=== PATIENT | female | born 1950 | race Caucasian/White ===

== ENCOUNTER 2019-06-07 11:58 | Outpatient (CLI) | payer MEDICARE ==
[2019-06-07] MEDS ORDERED: Iopamidol 370 76% 100 ML VIAL ONE (13:55)
[2019-06-07] MEDS ORDERED: Iopamidol 370 76% 50 ML VIAL FS ONE (13:55)
--- NOTE | 2019-06-07 15:34 | CT ---
CT ABDOMEN AND PELVIS WITH ORAL AND IV CONTRAST: HISTORY: Abdominal pain unspecified. Lower abdominal pain. COMPARISON: None. FINDINGS: The lung bases are unremarkable. The liver demonstrates decreased attenuation compared to the spleen , consistent with fatty infiltration. No hepatic mass or abnormal biliary ductal dilatation is seen. The patient is post cholecystectomy. The spleen, pancreas, adrenal glands, and kidneys are normal. No free air, free fluid, or lymphadenopathy is seen in the abdomen or pelvis. A uterus and ovaries a re present. The small bowel loops are not abnormally dilated. There is colonic diverticulosis. There is thicken ing of the wall of the proximal transverse colon with surrounding inflammatory changes. No abnormall y loculated fluid collection is seen to suggest abscess formation. There are vascular calcifications without evidence of aneurysmal dilatation. A normal-appearing appe ndix is present. There are degenerative changes in the spine. IMPRESSION: 1. Fatty infiltration of the liver. 2. Colonic diverticulosis with diverticulitis involving the proximal transverse colon. The possibil ity of mass cannot be excluded. A colonoscopy should be performed after a course of antibiotics. CODE T POS: TPC
== END 2019-06-07 11:59 | disposition home or self-care (01) ==
LOC: CT 11:58
PROVIDERS: ATTEND Internal Medicine
DX: R10.9 Unspecified abdominal pain (principal); K76.0 Fatty (change of) liver, not elsewhere classified; K57.30 Diverticulosis of large intestine without perforation or abscess without bleeding; K57.32 Diverticulitis of large intestine without perforation or abscess without bleeding
CPT/HCPCS: 74177; 81001; 87086; Q9967

== ENCOUNTER 2020-09-18 09:35 | Outpatient (CLI) | payer MEDICARE ==
--- NOTE | 2020-09-18 10:10 | BD ---
EXAM: DEXA bone density examination HISTORY: 69-year-old postmenopausal female for screening COMPARISON: None FINDINGS: L1--bone mineral density 0.870 g/sq cm; T score -1.1 L2--bone mineral density 0.880 g/sq cm; T score -1.3 L3--bone mineral density 0.920 g/sq cm; T score -1.5 L4--bone mineral density 0.999 g/sq cm; T score -0.6 Total L1-L4--bone mineral density 0.921 g/sq cm; T score -1.1 Left femoral neck--bone mineral density0.665; T score -1.7 Total proximal left femur--bone mineral density 0.999; T score 0.5 IMPRESSION: Osteopenia. This patient has a 10 year WHO fracture risk of a major osteoporotic fracture of 9.6% and of a hip fracture of 1.4%.
--- NOTE | 2020-09-18 11:55 | MMO ---
Bilateral MAMMO Bilat Screen [facility]. CLINICAL HISTORY: Patient is 69 years old and is seen for screening. The patient has no family history of breast cancer. The patient has no personal history of cancer. VIEWS: The views performed were: bilateral craniocaudal with tomosynthesis and bilateral mediolateral oblique with tomosynthesis. FILMS COMPARED: The present examination has been compared to prior imaging studies performed at [facility] on 01/17/2019, and at [facility] on 01/22/2012, 07/30/2012 and 03/24/2013. This study has been interpreted with the assistance of computer-aided detection. MAMMOGRAM FINDINGS: There are scattered fibroglandular densities. There are stable nodules seen in both breasts. There are no suspicious masses, suspicious calcifications, or new areas of architectural distortion. IMPRESSION: THERE IS NO MAMMOGRAPHIC EVIDENCE OF MALIGNANCY. A ROUTINE FOLLOW-UP MAMMOGRAM IN 1 YEAR IS RECOMMENDED. THE RESULTS OF THIS EXAM WERE SENT TO THE PATIENT. ACR BI-RADS Category 2 - Benign finding MAMMOGRAPHY NOTE: 1. A negative mammogram report should not delay a biopsy if a dominant of clinically suspicious mass is present. 2. Approximately 10% to 15% of breast cancers are not detected by mammography. 3. Adenosis and dense breasts may obscure an underlying neoplasm. Reported by: GENE BETANCOURT MD Electonically Signed: [id number]
== END 2020-09-18 09:36 | disposition home or self-care (01) ==
LOC: BICMAMMO 09:35
PROVIDERS: ATTEND Internal Medicine
DX: Z12.31 Encounter for screening mammogram for malignant neoplasm of breast (principal); Z13.820 Encounter for screening for osteoporosis; M85.89 Other specified disorders of bone density and structure, multiple sites; Z78.0 Asymptomatic menopausal state
CPT/HCPCS: 77063; 77067; 77080

== ENCOUNTER 2021-09-25 11:15 | Outpatient (CLI) | payer MEDICARE | END 2021-09-25 11:16 | disposition home or self-care (01) | LOC: BICMAMMO 11:15 | PROVIDERS: ATTEND Internal Medicine | DX: Z12.31 Encounter for screening mammogram for malignant neoplasm of breast (principal) | CPT/HCPCS: 77063; 77067 ==

== ENCOUNTER 2022-04-15 09:54 | Outpatient (CLI) | payer MEDICARE | END 2022-04-15 09:55 | disposition home or self-care (01) | LOC: BICULT 09:54 | PROVIDERS: ATTEND Internal Medicine Gastroenterology | DX: K76.0 Fatty (change of) liver, not elsewhere classified (principal); R79.89 Other specified abnormal findings of blood chemistry; E11.9 Type 2 diabetes mellitus without complications; R16.0 Hepatomegaly, not elsewhere classified; Z90.49 Acquired absence of other specified parts of digestive tract | CPT/HCPCS: 76705 ==

== ENCOUNTER 2022-10-22 14:23 | Outpatient (CLI) | payer OTHER | END 2022-10-22 14:24 | disposition home or self-care (01) | LOC: BICMAMMO 14:23 | PROVIDERS: ATTEND Internal Medicine | DX: Z12.39 Encounter for other screening for malignant neoplasm of breast (principal); R92.1 Mammographic calcification found on diagnostic imaging of breast; R92.8 Other abnormal and inconclusive findings on diagnostic imaging of breast; M85.88 Other specified disorders of bone density and structure, other site; Z78.0 Asymptomatic menopausal state | CPT/HCPCS: 77063; 77067; 77080 ==